=== PATIENT | female | born 1945 | race Caucasian/White ===

== ENCOUNTER → 2017-10-22 09:04 | Outpatient (CLI) | payer OTHER, SELFPAY ==
--- NOTE | 2017-10-22 | DI.ECHO.S_ITS ---
[facility] +[facility]+ : : [address] : : : : [id number] : : : : Phone: [phone] Echocardiogram Report + + :Name: KIMBERLY LAKHANI Study Date: 10/22/2017 Height: 67 in : :[facility] Weight: 179 lb : : Gender: Female BSA: 1.9 m2 : :: 1945 Age: 71 yrs BP: 188/92 mmHg: :Reason For Study: Atrial fibrillation : :Ordering Physician: Benton : :Aneesh Cardoza Performed By: Britney Fletcher : :Referring: Dr. Regan Brasher : + + Interpretation Summary 1) Normal left ventricular thickness, size, wall motion, and systolic function (EF 60-65%). 2) Mildly enlarged right ventricle with borderline reduced function. 3) There is severe biatrial enlargement. 4) There is mild to moderate mitral regurgitation. 5) There is mild to moderate tricuspid regurgitation. 6) The right ventricular systolic pressure is estimated at 61 mmHg assuming a right atrial pressure of 15 mm Hg. 7) A patent foramen ovale is present. 8) Severe hypertension present during the study (BP 188/92). 9) Compared to the Echo done 06/26/2011, pulmonary hypertension is present on this study. Procedure: A two-dimensional transthoracic echocardiogram with color flow and Doppler was performed. The study quality was technically adequate. Comparison is made with the echocardiogram of 06-26-11. The patient was in atrial fibrillation with heart rates between 81-98 bpm during the exam. Left Ventricle: The left ventricle is normal in size, wall thickness, and systolic function without any focal wall motion abnormalities. The ejection fraction is estimated to be 60-65%. Diastolic function could not be accurately assessed due to atrial fibrillation. Right Ventricle: The right ventricle is mildly dilated. Right ventricular systolic function is borderline reduced. Atria: There is severe biatrial enlargement. A patent foramen ovale is present. Mitral Valve: The mitral valve leaflets appear mildly thickened, but open well. There is mild to moderate mitral regurgitation. Aortic Valve: The aortic valve opens well. There is no aortic valve stenosis. No aortic regurgitation is present. Tricuspid Valve: The tricuspid valve leaflets are thin and pliable. There is mild to moderate tricuspid regurgitation. The right ventricular systolic pressure is estimated at 61 mmHg assuming a right atrial pressure of 15 mm Hg. Pulmonic Valve: The pulmonic valve is not well seen, but is grossly normal. There is trace pulmonic regurgitation. Great Vessels: The aortic root is normal size. The ascending aorta is mildly enlarged. The IVC is dilated (diameter is greater than 2.1 cm) and it collapses less than 50% with a sniff. This suggests a high right atrial pressure of 15 mm Hg. Pericardium/ Pleura There is no pericardial effusion. There is no pleural effusion. MMode/2D Measurements & Calculations LVIDd: 5.2 cm Ao root diam: 3.6 cm LVIDs: 3.6 cm Aortic Jxn: 2.8 cm FS: 30.9 % asc Aorta Diam: 3.9 cm EPSS: 0.59 cm Ao Arch Diam (Prox Trans): 2.2 cm IVSd: 1.1 cm LVPWd: 1.1 cm LV stoner. diameter/BSA (cm/m^2): 2.7 LV sys. diameter/BSA (cm/m^2): 1.9 LA dimension: 5.5 cm RA long axis: 8.2 cm LA A2 area: 37.5 cm2 RA area: 38.4 cm2 LA A4 area: 42.8 cm2 RA vol: 152.6 ml LA length (vol): 8.3 cm RA : 79.1 ml/m2 LA vol: 164.1 ml IVC diam: 2.2 cm LA vol index: 85.1 ml/m2 RVDd major: 5.9 cm RVD1 (basal): 3.6 cm RVD2 (mid): 3.0 cm Doppler Measurements & Calculations Ao V2 max: 159.5 cm/sec MV E max jarrett: 137.5 cm/sec Ao V2 mean: 104.8 cm/sec MV A max jarrett: 39.8 cm/sec Ao max P.2 mmHg MV E/A: 3.5 Ao mean P.3 mmHg MV dec time: 0.14 sec Ao V2 VTI: 34.9 cm MV P1/2t: 42.1 msec MR ERO: 0.14 cm2 TR max jarrett: 338.4 cm/sec MV P1/2t max jarrett: 137.7 cm/sec TR max P.8 mmHg MVA(P1/2t): 5.2 cm2 PA V2 max: 80.3 cm/sec PA V2 mean: 51.9 cm/sec PA mean P.3 mmHg PA Accel Time: 0.12 sec MR flow rate: 88.5 cm3/sec MR SCHROEDER radius: 0.61 cm Reading Physician:01:01 PM
== END ==
PROVIDERS: Family Provider Family Medicine; PCP Family Medicine; Visit Provider Internal Medicine Cardiovascular Disease
DX: I48.2 Chronic atrial fibrillation (principal)
CPT/HCPCS: 93306

== ENCOUNTER → 2017-11-18 12:49 | Outpatient (CLI) | payer OTHER, SELFPAY ==
[2017-11-18 13:18] LABS: Add Manual Diff / Slide Review NO; Basophils Percent Auto 0.4 % (0-2); Eosinophils Percent Auto 2.6 % (2-4); Hematocrit 38.3 % (36-46); Mean Corpuscular HGB Conc 33.9 % (30-36); Mean Corpuscular Hemoglobin 31.6 PG (26-34); Monocytes Percent Auto 10.3 % (3-14); Neutrophils Absolute Auto 3200 /uL (3000-5900); Neutrophils Percent Auto 56.7 % (50-75); Platelet Count 236 X10^3/uL (150-400); Red Blood Cell Count 4.12 X10^6/uL (4.0-5.2); Red Cell Distribution Width 13.7 % (11.6-14.8); White Blood Cell Count 5.7 X10^3/uL (4.5-11.0)
[2017-11-18 13:37] LABS: Alanine Aminotransferase 31 IU/L (9-52); Albumin 4.5 g/dL (3.5-5.0); Albumin Globulin Ratio 1.2 (1.0-2.8); Alkaline Phosphatase 75 U/L (38-126); Aspartate Aminotransferase 29 IU/L (14-36); Bilirubin Total 0.7 mg/dL (0.2-1.3); Blood Urea Nitrogen 30 mg/dL (7-17); Calcium 9.6 mg/dL (8.4-10.2); Carbon Dioxide 28 mmol/L (22-32); Chloride 101 mmol/L (98-107); Cholesterol 266 mg/dL (140-199); Estimated Glomerular Filt Rate 54.3 mL/min (>60); Globulin 3.8 g/dL (1.7-4.1); Glucose 91 mg/dL (80-110); HDL Cholesterol 61 mg/dL (40-60); HEMOLYSIS < 15 (0-50); LDL Cholesterol Calculated 166 mg/dL (<100); Potassium 3.7 mmol/L (3.4-5.1); Sodium 141 mmol/L (137-145); Total Protein 8.3 g/dL (6.3-8.2); Triglycerides 195 mg/dL (35-150)
[2017-11-18 19:07] LABS: Thyroid Stimulating Hormone 0.27 uIU/mL (0.47-4.68)
== END ==
PROVIDERS: PCP Family Medicine; Visit Provider Family Medicine
DX: I10 Essential (primary) hypertension (principal)
CPT/HCPCS: 36415; 80053; 80061; 84443; 85025

== ENCOUNTER → 2018-01-07 10:14 | Outpatient (CLI) | payer OTHER, SELFPAY ==
[2018-01-07 11:20] LABS: Blood Urea Nitrogen 32 mg/dL (7-17); Calcium 9.8 mg/dL (8.4-10.2); Carbon Dioxide 30 mmol/L (22-32); Chloride 102 mmol/L (98-107); Cholesterol 249 mg/dL (140-199); Estimated Glomerular Filt Rate 54.3 mL/min (>60); Glucose 90 mg/dL (80-110); HDL Cholesterol 56 mg/dL (40-60); HEMOLYSIS < 15 (0-50); LDL Cholesterol Calculated 174 mg/dL (<100); Potassium 3.8 mmol/L (3.4-5.1); Sodium 142 mmol/L (137-145); Triglycerides 96 mg/dL (35-150)
[2018-01-07 12:15] LABS: Free T3, Triiodothyronine Free 2.84 pg/mL (2.77-5.27); Free T4, Direct Thyroxine 1.09 ng/dL (0.78-2.19)
[2018-01-07 12:29] LABS: Thyroid Stimulating Hormone 1.08 uIU/mL (0.47-4.68)
== END ==
PROVIDERS: Family Provider Family Medicine; PCP Family Medicine; Visit Provider Internal Medicine Cardiovascular Disease
DX: I10 Essential (primary) hypertension (principal); I50.30 Unspecified diastolic (congestive) heart failure; E78.5 Hyperlipidemia, unspecified; R79.89 Other specified abnormal findings of blood chemistry
CPT/HCPCS: 36415; 80048; 80061; 84439; 84443; 84481

== ENCOUNTER → 2018-03-16 09:11 | Outpatient (CLI) | payer OTHER, SELFPAY ==
[2018-03-16 10:10] LABS: Cholesterol 262 mg/dL (140-199); HDL Cholesterol 67 mg/dL (40-60); LDL Cholesterol Calculated 175 mg/dL (<100); Triglycerides 100 mg/dL (35-150); Uric Acid 7.7 mg/dL (2.5-6.2)
== END ==
PROVIDERS: PCP Family Medicine; Visit Provider Family Medicine
DX: M10.9 Gout, unspecified (principal); E78.2 Mixed hyperlipidemia
CPT/HCPCS: 36415; 80061; 84550

== ENCOUNTER → 2018-06-08 15:34 | Outpatient (CLI) | payer OTHER, SELFPAY ==
--- NOTE | 2018-06-08 15:39 | DI.RAD.S_ITS ---
PROCEDURE: XR CHEST 2V INDICATIONS: cough TECHNIQUE: 2 views of the chest were acquired. COMPARISON: [facility], , CHEST 1 VIEW, 10/06/2006, 14:11. FINDINGS: Surgical changes and devices: None. Lungs and pleura: No pleural effusions or pneumothorax. Lungs are mildly edematous. Mediastinum: Mediastinal contours are normal. Heart size is globally enlarged, prominently, chronically. Bones and chest wall: No suspicious bony abnormalities. Soft tissues appear unremarkable. IMPRESSION: Chronic cardiomegaly, chronic CHF pattern. Dictated by: Cole Rodrigues M.D. on 06/08/2018 at 15:56 Approved by: Cole Rodrigues M.D. on 06/08/2018 at 15:56
== END ==
PROVIDERS: PCP Family Medicine; Visit Provider Family Medicine
DX: R05 Cough (principal); I51.7 Cardiomegaly; I50.9 Heart failure, unspecified
CPT/HCPCS: 71046

== ENCOUNTER → 2019-01-31 16:04 | Outpatient (CLI) | payer OTHER, SELFPAY ==
[2019-01-31 16:52] LABS: Add Manual Diff / Slide Review NO; Basophils Absolute Auto 0 /uL (0-100); Basophils Percent Auto 0.4 % (0-2); Eosinophils Absolute Auto 200 /uL (0-450); Eosinophils Percent Auto 3.9 % (2-4); Hematocrit 38.5 % (36-46); Hemoglobin 13.1 g/dL (12.0-16.0); Lymphocytes Absolute Auto 1900 /uL (1100-4500); Lymphocytes Percent Auto 30.6 % (25-40); Mean Corpuscular HGB Conc 33.9 % (30-36); Mean Corpuscular Hemoglobin 30.7 PG (26-34); Mean Corpuscular Volume 90.6 fL (80-100); Monocytes Absolute Auto 600 /uL (0-900); Monocytes Percent Auto 10.5 % (3-14); Neutrophils Absolute Auto 3400 /uL (1500-7000); Neutrophils Percent Auto 54.6 % (50-75); Platelet Count 186 X10^3/uL (150-400); Red Blood Cell Count 4.25 X10^6/uL (4.0-5.2); Red Cell Distribution Width 13.4 % (11.6-14.8); White Blood Cell Count 6.2 X10^3/uL (4.5-11.0)
[2019-01-31 18:24] LABS: Alanine Aminotransferase 36 IU/L (9-52); Albumin 4.2 g/dL (3.5-5.0); Albumin Globulin Ratio 1.2 (1.0-2.8); Alkaline Phosphatase 109 U/L (38-126); Amylase 71 U/L (30-110); Aspartate Aminotransferase 35 IU/L (14-36); BUN Creatinine Ratio 32.5 (6-22); Bilirubin Total 0.6 mg/dL (0.2-1.3); Blood Urea Nitrogen 39 mg/dL (7-17); Calcium 9.6 mg/dL (8.4-10.2); Carbon Dioxide 25 mmol/L (22-32); Chloride 104 mmol/L (98-107); Estimated Glomerular Filt Rate 43.9 mL/min (>60); Globulin 3.4 g/dL (1.7-4.1); Glucose 91 mg/dL (80-110); HEMOLYSIS < 15 (0-50); Magnesium 1.8 mg/dL (1.6-2.3); Potassium 3.3 mmol/L (3.4-5.1); Sodium 139 mmol/L (137-145); Total Protein 7.6 g/dL (6.3-8.2)
[2019-01-31 18:29] LABS: Lipase 268 U/L (23-300)
[2019-02-02 14:16] LABS: Urea Breath Test >18YRS DETECTED
== END ==
PROVIDERS: Family Provider Family Medicine; PCP Family Medicine; Visit Provider Family Medicine
DX: R10.9 Unspecified abdominal pain (principal)
CPT/HCPCS: 36415; 80053; 82150; 83013; 83690; 83735; 85025

== ENCOUNTER → 2019-02-04 11:30 | Outpatient (CLI) | payer OTHER, SELFPAY ==
--- NOTE | 2019-02-04 11:32 | DI.US.S_ITS ---
PROCEDURE: US ABDOMEN COMPLETE INDICATIONS: PAIN, DISTENTION TECHNIQUE: Real-time scanning was performed of the abdominal and retroperitoneal organs, with image documentation. COMPARISON: None. FINDINGS: Liver: Liver is normal in size and homogeneous in echotexture. Gallbladder: No gallstones identified. Normal gallbladder wall. No pericholecystic fluid. Negative sonographic Montoya sign. Biliary ducts: Intrahepatic bile ducts are non-dilated. Extrahepatic bile duct caliber measures 4.2 mm. Normal is 6-7 mm or less in diameter, or 10 mm or less post-cholecystectomy. Pancreas: Visualized portions of the pancreas are sonographically normal. Spleen: Spleen is normal in size and homogeneous in echotexture. Kidneys: Kidneys are normal in size and echotexture. Right kidney measures 10.7 cm long; left kidney measures 10.1 cm long. No hydronephrosis or nephrolithiasis. No solid masses. 26 mm simple right renal cyst. Aorta: Visualized aorta is normal in caliber at less than 3 cm. Iliacs: Proximal common iliac arteries are normal in caliber at less than 2.5 cm. IVC: Intrahepatic inferior vena cava is patent. Miscellaneous: No free abdominal fluid. IMPRESSION: No source for abdominal pain and distention identified. Dictated by: Sandro HORNE Interpreted: Saundra Figueroa MD on 02/04/2019 at 13:05 Approved by: Saundra Figueroa M.D. on 02/04/2019 at 16:07
== END ==
PROVIDERS: Family Provider Family Medicine; PCP Family Medicine; Visit Provider Family Medicine
DX: R10.9 Unspecified abdominal pain (principal); R14.0 Abdominal distension (gaseous)
CPT/HCPCS: 76700

== ENCOUNTER → 2019-04-29 12:35 | Outpatient (CLI) | payer OTHER, SELFPAY ==
--- NOTE | 2019-04-29 12:36 | DI.MRI.S_ITS ---
PROCEDURE: MR BRAIN (IAC) WWO CON INDICATIONS: Vertigo, right-sided tinnitus. TECHNIQUE: Noncontrast sagittal T1 spin echo, axial FLAIR, axial gradient echo, axial diffusion and ADC through the brain. Axial thin-slice 3D CISS, coronal TruFISP, axial T1 spin echo with fat saturation through the internal auditory canals. After the administration of contrast, thin slice axial and coronal T1 spin echo with fat saturation through the internal auditory canals, and axial T1 spin echo with fat saturation through the brain. COMPARISON: None. FINDINGS: Image quality: Excellent. Cerebellopontine angles: No cerebellopontine angle masses. Inner ear structures appear normally formed. No suspicious enhancement in the internal auditory canal or along the course of the 7th cranial nerve. CSF spaces: Ventricles are normal in size and shape. No extra-axial fluid collections. Basal cisterns are patent. Brain: No intracranial bleeds or mass effects. Barrios-white matter interface is intact. No abnormal intracranial enhancement. Diffusion weighted images demonstrate no acute ischemic insults. Brainstem appears normal. Normal intravascular flow voids are present. Skull and face: Calvarial marrow signal is normal. Orbits appear normal. Sinuses: Sinuses and mastoids are clear. IMPRESSION: Source of vertigo and tinnitus is not found. The brain parenchyma appears normal for age. No inflammatory changes seen at the mastoid air cells bilaterally. No underlying infection or neoplasm is suspected. Dictated by: Cole Rodrigues M.D. on 04/29/2019 at 14:49 Approved by: Cole Rodrigues M.D. on 04/29/2019 at 14:52
== END ==
PROVIDERS: Family Provider Family Medicine; PCP Family Medicine; Visit Provider Family Medicine
DX: R42 Dizziness and giddiness (principal)
CPT/HCPCS: 70553

== ENCOUNTER → 2020-01-11 11:02 | Outpatient (CLI) | payer OTHER, SELFPAY ==
[2020-01-11 12:17] LABS: Add Manual Diff / Slide Review NO; Basophils Absolute Auto 100 /uL (0-100); Basophils Percent Auto 0.9 % (0-2); Eosinophils Absolute Auto 900 /uL (0-450); Hematocrit 38.2 % (36-46); Lymphocytes Absolute Auto 1500 /uL (1100-4500); Lymphocytes Percent Auto 23.6 % (25-40); Mean Corpuscular HGB Conc 34.1 % (30-36); Mean Corpuscular Hemoglobin 31.4 PG (26-34); Mean Corpuscular Volume 92.2 fL (80-100); Monocytes Absolute Auto 700 /uL (0-900); Monocytes Percent Auto 10.9 % (3-14); Neutrophils Absolute Auto 3100 /uL (1500-7000); Neutrophils Percent Auto 50.6 % (50-75); Platelet Count 179 X10^3/uL (150-400); Red Blood Cell Count 4.15 X10^6/uL (4.0-5.2); White Blood Cell Count 6.2 X10^3/uL (4.5-11.0)
[2020-01-11 12:34] LABS: Erythrocyte Sedimentation Rate 31 MM/HR (0-20)
[2020-01-11 12:35] LABS: Alanine Aminotransferase 45 IU/L (<35); Albumin 4.4 g/dL (3.5-5.0); Albumin Globulin Ratio 1.3 (1.0-2.8); Alkaline Phosphatase 113 U/L (38-126); Aspartate Aminotransferase 39 IU/L (14-36); BUN Creatinine Ratio 31.8 (6-22); Bilirubin Total 0.7 mg/dL (0.2-1.3); Blood Urea Nitrogen 41 mg/dL (7-17); Calcium 9.7 mg/dL (8.4-10.2); Carbon Dioxide 27 mmol/L (22-32); Chloride 103 mmol/L (98-107); Cholesterol 267 mg/dL (140-199); Estimated Glomerular Filt Rate 40.3 mL/min (>60); Globulin 3.4 g/dL (1.7-4.1); Glucose 93 mg/dL (80-110); HDL Cholesterol 49 mg/dL (40-60); HEMOLYSIS < 15 (0-50); LDL Cholesterol Calculated 194 mg/dL (<100); Sodium 139 mmol/L (137-145); Total Protein 7.8 g/dL (6.3-8.2); Triglycerides 120 mg/dL (35-150); Uric Acid 10.3 mg/dL (2.5-6.2)
[2020-01-11 12:55] LABS: C-Reactive Protein Quant < 0.5 mg/dL (<1.0)
[2020-01-11 13:41] LABS: Thyroid Stimulating Hormone 1.47 uIU/mL (0.47-4.68)
== END ==
PROVIDERS: Family Provider Family Medicine; PCP Family Medicine; Referring Provider Family Medicine; Visit Provider Family Medicine
DX: E78.2 Mixed hyperlipidemia (principal); I10 Essential (primary) hypertension; M15.8 Other polyosteoarthritis
CPT/HCPCS: 36415; 80053; 80061; 84443; 84550; 85025; 85651; 86140

== ENCOUNTER → 2020-03-05 11:31 | Outpatient (CLI) | payer OTHER, SELFPAY ==
[2020-03-05 12:17] LABS: Alanine Aminotransferase 30 IU/L (<35); Albumin 4.2 g/dL (3.5-5.0); Albumin Globulin Ratio 1.2 (1.0-2.8); Alkaline Phosphatase 102 U/L (38-126); Aspartate Aminotransferase 29 IU/L (14-36); BUN Creatinine Ratio 20.4 (6-22); Bilirubin Total 0.8 mg/dL (0.2-1.3); Bilirubin Unconjugated 0.6 mg/dL (0.0-1.1); Blood Urea Nitrogen 28 mg/dL (7-17); Calcium 9.5 mg/dL (8.4-10.2); Carbon Dioxide 35 mmol/L (22-32); Chloride 99 mmol/L (98-107); Estimated Glomerular Filt Rate 37.6 mL/min (>60); Globulin 3.6 g/dL (1.7-4.1); Glucose 105 mg/dL (80-110); HEMOLYSIS < 15 (0-50); Potassium 3.3 mmol/L (3.4-5.1); Sodium 140 mmol/L (137-145); Total Protein 7.8 g/dL (6.3-8.2)
[2020-03-06 05:10] LABS: HBsAg Screen Negative (Negative); Hepatitis A Antibody IgM Negative (Negative); Hepatitis B Core Antibody IgM Negative (Negative); Hepatitis C Antibody 0.1 s/co ratio (0.0-0.9)
== END ==
PROVIDERS: Family Provider Family Medicine; PCP Family Medicine; Referring Provider Family Medicine; Visit Provider Family Medicine
DX: R94.5 Abnormal results of liver function studies (principal); N17.9 Acute kidney failure, unspecified
CPT/HCPCS: 36415; 80048; 80074; 80076

== ENCOUNTER → 2020-05-31 15:49 | Outpatient (CLI) | payer OTHER, SELFPAY ==
[2020-05-31 16:43] LABS: Add Manual Diff / Slide Review NO; Basophils Absolute Auto 0 /uL (0-100); Basophils Percent Auto 0.4 % (0-2); Eosinophils Absolute Auto 300 /uL (0-450); Eosinophils Percent Auto 5.8 % (2-4); Hematocrit 35.8 % (36-46); Hemoglobin 11.7 g/dL (12.0-16.0); Lymphocytes Absolute Auto 1400 /uL (1100-4500); Lymphocytes Percent Auto 26.6 % (25-40); Mean Corpuscular HGB Conc 32.6 % (30-36); Mean Corpuscular Hemoglobin 27.8 PG (26-34); Mean Corpuscular Volume 85.3 fL (80-100); Monocytes Absolute Auto 500 /uL (0-900); Monocytes Percent Auto 9.8 % (3-14); Neutrophils Absolute Auto 3000 /uL (1500-7000); Neutrophils Percent Auto 57.4 % (50-75); Platelet Count 216 X10^3/uL (150-400); Red Cell Distribution Width 15.6 % (11.6-14.8); White Blood Cell Count 5.2 X10^3/uL (4.5-11.0)
[2020-05-31 16:50] LABS: Alanine Aminotransferase 18 IU/L (<35); Albumin Globulin Ratio 1.2 (1.0-2.8); Alkaline Phosphatase 127 U/L (38-126); Aspartate Aminotransferase 28 IU/L (14-36); Bilirubin Total 0.4 mg/dL (0.2-1.3); Blood Urea Nitrogen 16 mg/dL (7-17); Calcium 9.4 mg/dL (8.4-10.2); Carbon Dioxide 30 mmol/L (22-32); Chloride 106 mmol/L (98-107); Globulin 3.3 g/dL (1.7-4.1); Glucose 101 mg/dL (80-110); HEMOLYSIS < 15 (0-50); Potassium 3.4 mmol/L (3.4-5.1); Sodium 140 mmol/L (137-145); Total Protein 7.3 g/dL (6.3-8.2); Uric Acid 7.4 mg/dL (2.5-6.2)
[2020-05-31 16:53] LABS: C-Reactive Protein Quant < 0.5 mg/dL (<1.0)
[2020-05-31 17:47] LABS: Erythrocyte Sedimentation Rate 19 MM/HR (0-20)
== END ==
PROVIDERS: Family Provider Family Medicine; PCP Internal Medicine; Referring Provider Internal Medicine; Visit Provider Internal Medicine
DX: E78.2 Mixed hyperlipidemia (principal); I10 Essential (primary) hypertension; I48.91 Unspecified atrial fibrillation; M10.9 Gout, unspecified
CPT/HCPCS: 36415; 80053; 84550; 85025; 85651; 86140

== ENCOUNTER 2022-01-24 14:34 | Emergency (ER) | payer OTHER, SELFPAY ==
[2022-01-24] VITALS (14 sets, daily range): BP systolic 137–230; BP diastolic 63–111; PULSE 62–74; RESP 16–20; TEMP 36.2; O2SAT 93–97; BMI 39.1
--- NOTE | 2022-01-24 15:23 | ED_ITS ---
HPI - Extremity Problem General Chief complaint: Extremity Problem,Nontraumatic Stated complaint: Toney Lower extremity swelling/failure to thrive Time Seen by Provider: 01/24/22 15:14 Source: patient Mode of arrival: EMS Limitations: no limitations History of Present Illness HPI Narrative: Patient is a 76-year-old female. She arrives emergency department by EMS. For evaluation of bilateral lower extremity swelling. She has had swelling for many months if not longer. She has been on Lasix in the past but does not currently have any this medication. It has been several weeks if not longer that she is been on any Lasix. She states that she can not get to her primary doctor's office because she is too weak to stand up. She does live at home with her daughter. States her daughter's been her collector of port but recently her daughter has been unable to take care of her. She did get a cat scratch on her right lower extremity and she states that that area has been leaking some fluid and she is concerned that maybe it is infected. She also generally does not feel very well. Her initial primary doctor that she had for years retired. She states she saw another doctor afterwards but apparently there was some issue with that doctor and she was told that she could no longer see him. She has been seeing a palliative care doctor out of [place]. Patient is unsure as to why she is under the care of palliative care. Related Data Previous Rx's Medication Instructions Recorded warfarin 2.5 mg tablet See Rx Instructions .Route 01/17/20 .COMPLEX #120 tabs furosemide 40 mg tablet 40 mg PO .2 - 3x daily #180 tabs 03/20/20 qjckezen-putxmdjzy-ntkruoxe 3.5 2 drp EYE-BOTH Q8H #5 mL 05/31/20 mg/mL-10,000 unit/mL-0.1% eye drops (Maxitrol) carvedilol 12.5 mg tablet 25 mg PO BID #360 tabs 06/13/20 clonidine HCl 0.1 mg tablet 0.1 mg PO BID #180 tabs 06/29/20 lorazepam 0.5 mg tablet 0.5 mg PO TID PRN anxiety #90 tabs 06/29/20 colchicine 0.6 mg capsule See Rx Instructions .Route 07/05/20 .COMPLEX #90 caps losartan 50 mg tablet See Rx Instructions .Route 09/10/20 .COMPLEX #270 tabs furosemide 40 mg tablet (Lasix) 40 mg PO DAILY #90 tabs 01/24/22 Allergies Allergy/AdvReac Type Severity Reaction Status Date / Time amlodipine AdvReac Severe edema Verified 08/03/20 13:32 codeine [CODEINE] AdvReac Unknown UPSET Verified 08/03/20 13:32 STOMACH morphine [MORPHINE] AdvReac Unknown UPSET Verified 08/03/20 13:32 STOMACH hydralazine AdvReac racing Verified 08/03/20 13:32 heart, trouble breathing Review of Systems Review of Systems ROS Unobtainable: All systems reviewed & are unremarkable except as noted in HPI and below Patient History Medical History Anxiety (~2007) Atrial fibrillation (~2007) Chronic heart failure with preserved ejection fraction Chronic renal failure, stage 3a Depression (~2015) Eczema (~1979) Family history of colon cancer in father Foot pain (~2008) Gout (~2008) Obesity Patent foramen ovale Plantar warts (~1959) Rheumatoid arthritis (~2014) Status post fracture of femur (~02/2020) Vision disorder Surgical History Anesthesia Status post appendectomy (~1980) Status post delivery (~1979) Family History Father Age: 101 Cancer Hypertension Stroke Aneurysm Colon cancer Mother Heart disease High cholesterol Social History household members: family occupational status: employed Smoking Status: Never smoker alcohol intake: current substance use type: does not use Smoking Status: Never smoker Exam Initial Vital Signs Initial Vital Signs: Vital Signs Pulse Rate 74 01/24/22 14:48 Pulse Oximetry 96 01/24/22 14:48 Const General: cooperative and comfortable HENMT Head: normal to inspection and normocephalic Resp Effort & Inspection: normal respiratory effort Auscultation: clear to auscultation bilaterally Cardio Rate: regular rate Rhythm: regular rhythm GI Inspection: normal to inspection Palpation: soft and No tender Skin Other: Patient does have a small superficial ulceration to the distal 1/3 of the lateral aspect of her right leg. There is no surrounding erythema. She also has what appears to be getting of pressure ulcers to her upper buttocks. There is no erythema around the area. There is actually no break in the skin in this area. Neuro General: patient alert, patient awake and moves all extremities Extrem Other: Patient does have bilateral lower extremity swelling Psych Appearance: grossly normal and disheveled Course Orders Ordered: ED Orders 01/24/22 15:10 Consult to TRANSPORTATION MAINTENANCE OPERATOR - Napkin Band Wrapper Stat 01/24/22 15:44 Complete Blood Count AUTO DIFF Stat Comprehensive Metabolic Panel Stat Lipase Stat NT-proBNP (BNP-Adult 18+) Stat Troponin & CK Cardiac Panel Stat 01/24/22 16:45 Consult to Home Health Stat Discontinued Medications Furosemide (Furosemide 40 Mg/4 Ml Vial) 40 mg IV NOW ONE Stop: 01/24/22 15:27 Last Admin: 01/24/22 15:44 Dose: 40 mg Documented By: [facility] Vital Signs Vital signs: Vital Signs - 8 hr 01/24/22 14:54 01/24/22 14:48 01/24/22 14:52 Temperature 97.1 F L Pulse Rate 70 74 67 Respiratory Rate 20 Blood Pressure 205/111 H Pulse Oximetry 97 96 95 Oxygen Delivery Method Room Air 01/24/22 14:52 01/24/22 15:00 01/24/22 15:01 Temperature Pulse Rate 67 Respiratory Rate Blood Pressure 205/111 H 199/90 H Pulse Oximetry 95 Oxygen Delivery Method 01/24/22 15:01 01/24/22 15:30 01/24/22 15:31 Temperature Pulse Rate 63 62 69 Respiratory Rate Blood Pressure Pulse Oximetry 95 95 95 Oxygen Delivery Method 01/24/22 15:31 01/24/22 16:00 01/24/22 16:01 Temperature Pulse Rate 73 Respiratory Rate Blood Pressure 199/81 H 230/92 H Pulse Oximetry 95 Oxygen Delivery Method 01/24/22 16:01 01/24/22 16:30 01/24/22 16:31 Temperature Pulse Rate 73 64 63 Respiratory Rate Blood Pressure Pulse Oximetry 93 96 95 Oxygen Delivery Method 01/24/22 16:31 01/24/22 17:00 01/24/22 17:01 Temperature Pulse Rate 70 Respiratory Rate Blood Pressure 195/79 H 217/86 H Pulse Oximetry 96 Oxygen Delivery Method 01/24/22 17:01 Temperature Pulse Rate 66 Respiratory Rate Blood Pressure Pulse Oximetry 95 Oxygen Delivery Method MDM - Extremity (Nontraumatic) Lab Data Result diagrams: 01/24/22 15:44 01/24/22 15:44 Labs: Lab Results 01/24/22 01/24/22 Range/Units 15:44 15:44 WBC 5.6 (4.5-11.0) X10^3/uL RBC 3.84 L (4.0-5.2) X10^6/uL Hgb 11.8 L (12.0-16.0) g/dL Hct 35.3 L (36-46) % MCV 91.9 (80-100) fL MCH 30.7 (26-34) PG MCHC 33.4 (30-36) % RDW 13.6 (11.6-14.8) % Plt Count 182 (150-400) X10^3/uL Neut % (Auto) 64.0 (50-75) % Lymph % (Auto) 17.4 L (25-40) % Hand % (Auto) 10.2 (3-14) % Eos % (Auto) 7.6 H (2-4) % Baso % (Auto) 0.8 (0-2) % Neut # (Auto) 3600 (7617-3793) /uL Lymph # (Auto) 1000 L (3268-1416) /uL Hand # (Auto) 600 (0-900) /uL Eos # (Auto) 400 (0-450) /uL Baso # (Auto) 0 (0-100) /uL Sodium 139 (137-145) mmol/L Potassium 3.6 (3.4-5.1) mmol/L Chloride 105 (98-107) mmol/L Carbon Dioxide 26 (22-32) mmol/L BUN 13 (7-17) mg/dL Creatinine 0.87 (0.52-1.04) mg/dL Estimated GFR > 60 (>60) mL/min BUN/Creatinine Ratio 14.9 (6-22) Glucose 105 (80-110) mg/dL Calcium 9.2 (8.4-10.2) mg/dL Total Bilirubin 0.9 (0.2-1.3) mg/dL AST 17 (14-36) IU/L ALT 9 (<35) IU/L Alkaline Phosphatase 66 (38-126) U/L Total Creatine Kinase 38 (30-135) U/L CK-MB (CK-2) TNP CK-MB (CK-2) Rel Index TNP Troponin I < 0.012 (0.01-0.034) ng/mL NT-Pro-B Natriuret Pep 1450 H (<450) pg/mL Total Protein 7.3 (6.3-8.2) g/dL Albumin 3.8 (3.5-5.0) g/dL Globulin 3.5 (1.7-4.1) g/dL Albumin/Globulin Ratio 1.1 (1.0-2.8) Lipase 68 (23-300) U/L MDM Narrative Medical decision making narrative: No chest pain. She does have obvious bilateral lower extremity swelling. She is also hypertensive. She is obviously fluid overloaded. Not in acute heart f ailure. Was given Lasix and did diurese greater than 1 L of urine. Patient was also seen by social work. Social work contacted the last primary doctor the patient saw had it does appear that she is still under their care. Patient was informed of this. She was given their new phone number for follow-up. We were also able to get her scheduled for home health because she does have a primary doctor. No indication for admission to the hospital today. Will discharge home and have patient follow-up. She was also given a prescription for her Lasix. Discharge Plan Departure Patient Disposition: Home Clinical Impression: Peripheral edema Instructions: Edema Activity Restrictions/Additional Instructions: I do recommend that you take all of your medications as directed. Our social welfare clerk here in the emergency department did contact the [address] and it does appear you are still under their care. You can contact their office at [phone] for a follow-up. Return to the emergency department for any new or worsening symptoms Prescriptions: New furosemide [Lasix] 40 mg tablet 40 mg PO DAILY Qty: 90 0RF No Action warfarin 2.5 mg tablet See Rx Instructions .ROUTE .COMPLEX Qty: 120 2RF Dose Instruction: TAKE 2 TABLETS BY MOUTH ON THURSDAY, THURSDAY AND THURSDAY. TAKE 1 TABLET THE OTHER 4 DAYS OR DIRECTED Rx Instructions: TAKE 2 TABLETS BY MOUTH ON THURSDAY, THURSDAY AND THURSDAY. TAKE 1 TABLET THE OTHER 4 DAYS OR DIRECTED furosemide 40 mg tablet 40 mg PO .2 - 3x daily Qty: 180 1RF carvedilol 12.5 mg tablet 25 mg PO BID Qty: 360 3RF colchicine 0.6 mg capsule See Rx Instructions .ROUTE .COMPLEX Qty: 90 3RF Dose Instruction: TAKE 1 CAPSULE BY MOUTH DAILY Rx Instructions: TAKE 1 CAPSULE BY MOUTH DAILY losartan 50 mg tablet See Rx Instructions .ROUTE .COMPLEX Qty: 270 3RF Dose Instruction: TAKE 2 TABLETS BY MOUTH EVERY MORNING AND 1 TABLET EVERY EVENING Rx Instructions: TAKE 2 TABLETS BY MOUTH EVERY MORNING AND 1 TABLET EVERY EVENING neomycin-polymyxin B-dexameth [Maxitrol] 3.5mg/mL-10,000 unit/mL-0.1 % drops,suspension 2 drp EYE-BOTH Q8H Qty: 5 0RF clonidine HCl 0.1 mg tablet 0.1 mg PO BID Qty: 180 3RF lorazepam 0.5 mg tablet 0.5 mg PO TID PRN (Reason: anxiety) Qty: 90 3RF Referrals: Sammy Mccoy MD [Primary Care Provider] -
[2022-01-24] MEDS: FUROSEMIDE 40 MG/4 ML VIAL IV (15:44)
[2022-01-24 16:00] LABS: Add Manual Diff / Slide Review NO; Basophils Absolute Auto 0 /uL (0-100); Basophils Percent Auto 0.8 % (0-2); Eosinophils Absolute Auto 400 /uL (0-450); Eosinophils Percent Auto 7.6 % (2-4); Hematocrit 35.3 % (36-46); Hemoglobin 11.8 g/dL (12.0-16.0); Lymphocytes Absolute Auto 1000 /uL (1100-4500); Lymphocytes Percent Auto 17.4 % (25-40); Mean Corpuscular HGB Conc 33.4 % (30-36); Mean Corpuscular Hemoglobin 30.7 PG (26-34); Mean Corpuscular Volume 91.9 fL (80-100); Monocytes Absolute Auto 600 /uL (0-900); Monocytes Percent Auto 10.2 % (3-14); Neutrophils Absolute Auto 3600 /uL (1500-7000); Platelet Count 182 X10^3/uL (150-400); Red Blood Cell Count 3.84 X10^6/uL (4.0-5.2); Red Cell Distribution Width 13.6 % (11.6-14.8); White Blood Cell Count 5.6 X10^3/uL (4.5-11.0)
--- NOTE | 2022-01-24 16:04 | PC.NURSE ---
cat scratch to right lower leg. Reports increase drainage from right leg. Patient has bilateral lower extremity edema. Worse on right than left. Has been bed bound for two years. Patient has redness noted to backside, no break in skin just redness from pressure.
--- NOTE | 2022-01-24 16:07 | PC.NURSE ---
Buttocks cleaned, dressing applied to buttocks. Absorbant pad placed under patient, periwick in place for incontinence. Absorbant chucks placed under right leg in place of patients dressing she presented with. Do not appreciate redness, swelling or warmth. No signs of infection noted
[2022-01-24 16:13] LABS: Alanine Aminotransferase 9 IU/L (<35); Albumin 3.8 g/dL (3.5-5.0); Albumin Globulin Ratio 1.1 (1.0-2.8); Alkaline Phosphatase 66 U/L (38-126); Aspartate Aminotransferase 17 IU/L (14-36); BUN Creatinine Ratio 14.9 (6-22); Bilirubin Total 0.9 mg/dL (0.2-1.3); Blood Urea Nitrogen 13 mg/dL (7-17); Calcium 9.2 mg/dL (8.4-10.2); Carbon Dioxide 26 mmol/L (22-32); Chloride 105 mmol/L (98-107); Creatine Kinase 38 U/L (30-135); Estimated Glomerular Filt Rate > 60 mL/min (>60); Globulin 3.5 g/dL (1.7-4.1); Glucose 105 mg/dL (80-110); HEMOLYSIS < 15 (0-50); Lipase 68 U/L (23-300); Potassium 3.6 mmol/L (3.4-5.1); Sodium 139 mmol/L (137-145); Total Protein 7.3 g/dL (6.3-8.2)
[2022-01-24 16:26] LABS: NT-proBNP (BNP-Adult 18+) 1450 pg/mL (<450); Troponin I < 0.012 ng/mL (0.01-0.034)
--- NOTE | 2022-01-24 17:15 | CM.SWNOTE ---
STAPLE LASTER/DCP Note Patient is 76 y/o female who presents to ED via EMS from [facility] due to concern for bilateral lower extremity swelling and failure to thrive. Patient has hx of femur fracture in 2019, hx of AFib, CHF, and Hypertension. Patient has new dx at today's ED visit or peripheral edema. Patient's PCP is Dr. Mccoy, STAPLE LASTER calls Dr. Mccoy's office to confirm patient is still current with provider. Patient's last appt was July 2020. Patient also endorses she has been seeing CAMPOS Canales through [facility] who is a physical security specialist at [facility]. Patient has AARP medicare, [facility] Medicare and [facility] and the [facility] Advantage. Patient presents as A/Ox3 and states that she presents to ED due to concern for edema on her legs, that she is full of fluid and presents with high blood pressure. Patient endorses that she resides with her daughter Jennifer in [place] and daughter has not been able to transfer patient to wheelchair and patient has not been able to leave home. Patient endorses hx of SNF rehab stay in March 2020 after femur fracture and hx of [facility]. Patient endorses she has been bedridden for the last several months. Patient endorses that she has not been able to manage ADLs and relies on her daughter for ADL needs. Patient's daughter enters room. STAPLE LASTER discusses HH services and provides senior resource guide with options of in home caregivers and filler leaf cutter long care facilities via private pay. Patient endorses that she is not interested in SNF. STAPLE LASTER discusses HH agency options and patient denies preference. STAPLE LASTER calls [facility] and leaves regarding HH referral. ED provider Dr. Hernandez signs F2F. STAPLE LASTER to fax F2F, orders and clinicals to [facility]. STAPLE LASTER to submit HH referral for OT, PT, RN, HH aide and STAPLE LASTER. STAPLE LASTER provides [facility] brochure to patient. Patient indicates agreement and understanding. Plan: Patient to transfer home via BLS with [facility] referral in place. Family to look into filler leaf cutter long care options. SRINIVAS Roman
== END 2022-01-24 20:19 | disposition home or self-care (01) ==
PROVIDERS: Emergency Provider Emergency Medicine; Family Provider Family Medicine; PCP Internal Medicine
DX: R60.0 Localized edema (principal); I10 Essential (primary) hypertension
CPT/HCPCS: 36415; 80053; 82550; 83690; 83880; 84484; 85025; 96374; 99284; J1940

== ENCOUNTER 2023-02-26 08:08 | Emergency (ER) | payer OTHER, SELFPAY ==
[2023-02-26] VITALS (31 sets, daily range): BP systolic 181–238; BP diastolic 95–172; PULSE 64–93; RESP 16–22; TEMP 36.6; O2SAT 91–97; BMI 44.3
--- NOTE | 2023-02-26 08:19 | ED.GENADULT ---
HPI - General Adult General Chief complaint: Wound/Laceration Stated complaint: R leg wound Time Seen by Provider: 02/26/23 08:09 Source: patient and EMS Mode of arrival: EMS Limitations: no limitations History of Present Illness HPI narrative: Patient is a 69-year-old female. I evaluated her here in the emergency department approximately 1 year ago. She states that she is here because she just does not feel very well. She has a wound on her right leg that is weeping. She states that she has ?keloids? on the wound on her right leg that are draining. It is somewhat tender. She also states that she needs a COVID test because she is never had COVID nor has had any vaccinations for COVID. She states that her legs hurt. They are swollen. She does not have a primary care doctor. Related Data Home Medications Medication Instructions Recorded Confirmed dabigatran etexilate 150 mg 150 mg PO DAILY 02/26/23 02/26/23 capsule (Pradaxa) furosemide 40 mg tablet 40 mg PO DAILY 02/26/23 02/26/23 losartan 50 mg tablet 100 mg PO DAILY 02/26/23 02/26/23 Previous Rx's Medication Instructions Recorded carvedilol 12.5 mg tablet 25 mg (2 x 12.5 mg) PO BID #360 06/13/20 tabs clonidine HCl 0.1 mg tablet 0.1 mg PO BID #180 tabs 06/29/20 lorazepam 0.5 mg tablet 0.5 mg PO TID PRN anxiety #90 tabs 06/29/20 carvedilol 12.5 mg tablet 25 mg (2 x 12.5 mg) PO BID #120 02/26/23 tabs clonidine HCl 0.1 mg tablet 0.1 mg PO BID #60 tabs 02/26/23 dabigatran etexilate 150 mg 150 mg PO DAILY #30 caps 02/26/23 capsule (Pradaxa) furosemide 40 mg tablet (Lasix) 40 mg PO DAILY #30 tabs 02/26/23 lorazepam 0.5 mg tablet (Ativan) 0.5 mg PO TID PRN anxiety #30 tabs 02/26/23 losartan 50 mg tablet 100 mg (2 x 50 mg) PO DAILY #60 02/26/23 tabs Allergies Allergy/AdvReac Type Severity Reaction Status Date / Time amlodipine AdvReac Severe edema Verified 08/03/20 13:32 codeine [CODEINE] AdvReac Unknown UPSET Verified 08/03/20 13:32 STOMACH morphine [MORPHINE] AdvReac Unknown UPSET Verified 08/03/20 13:32 STOMACH hydralazine AdvReac racing Verified 08/03/20 13:32 heart, trouble breathing Review of Systems Constitutional Constitutional: Reports system reviewed and no additional complaints, except as documented Cardiovascular Cardiovascular: Reports system reviewed and no additional complaints, except as documented Respiratory Respiratory: Reports system reviewed and no additional complaints, except as documented Musculoskeletal Musculoskeletal: Reports system reviewed and no additional complaints, except as documented Integumentary/Breasts Skin/Breast: Reports system reviewed and no additional complaints, except as documented Neurologic Neurologic: Reports system reviewed and no additional complaints, except as documented Patient History Medical History Patent foramen ovale Chronic heart failure with preserved ejection fraction Chronic renal failure, stage 3a Status post fracture of femur (~02/2020) Obesity Family history of colon cancer in father Vision disorder Rheumatoid arthritis (~2014) Depression (~2015) Anxiety (~2007) Gout (~2008) Foot pain (~2008) Plantar warts (~1959) Eczema (~1979) Atrial fibrillation (~2007) Surgical History Anesthesia Status post appendectomy (~1980) Status post delivery (~1979) Family History Father Age: 102 Cancer Hypertension Stroke Aneurysm Colon cancer Mother Heart disease High cholesterol Social History household members: family occupational status: employed Smoking Status: Never smoker alcohol intake: current substance use type: does not use Smoking Status: Never smoker Exam Initial Vital Signs Initial Vital Signs: Vital Signs Pulse Rate 92 H 02/26/23 08:18 Pulse Oximetry 96 02/26/23 08:18 Const General: cooperative HENMT Head: normal to inspection and normocephalic Resp Effort & Inspection: normal respiratory effort Cardio Rate: regular rate Skin Other: Patient does have what appears to be a chronic wound with thickening of the skin to her right leg just proximal to the knee. There is no surrounding erythema. No ulcerations noted. Neuro General: patient alert, patient awake and patient oriented x3 Speech: speech normal Extrem General: edema Course Orders Ordered: ED Orders 02/26/23 08:20 Basic Metabolic Panel Stat Complete Blood Count AUTO DIFF Stat 02/26/23 08:30 Covid-19 + FLU A/B + RSV - PCR Stat 02/26/23 08:[address] [facility] - Early [employer] Teacher Stat 02/26/23 13:20 Consult to Home Health Stat Discontinued Medications Acetaminophen (Acetaminophen 325 Mg Tablet) 650 mg PO NOW ONE Stop: 02/26/23 13:40 Last Admin: 02/26/23 13:49 Dose: 650 mg Documented By: KATELIN Carvedilol (Carvedilol 12.5 Mg Tablet) 25 mg PO NOW ONE Stop: 02/26/23 11:00 Last Admin: 02/26/23 11:19 Dose: 25 mg Documented By: KATELIN Clonidine HCl (Clonidine 0.1 Mg Tablet) 0.1 mg PO NOW ONE Stop: 02/26/23 10:11 Last Admin: 02/26/23 10:22 Dose: 0.1 mg Documented By: KATELIN Furosemide 60 mg/ Sodium (Chloride) 56 mls @ 112 mls/hr IV NOW ONE Stop: 02/26/23 08:25 Last Infusion: 02/26/23 09:48 Dose: Infused Documented By: Admin: 02/26/23 09:09 Dose: 112 mls/hr Documented By: KATELIN Losartan Potassium (Losartan 50 Mg Tablet) 100 mg PO NOW ONE Stop: 02/26/23 11:00 Last Admin: 02/26/23 11:18 Dose: 100 mg Documented By: KATELIN Ondansetron HCl (Ondansetron 4 Mg/2 Ml Inj) 4 mg IV NOW ONE Stop: 02/26/23 10:12 Last Admin: 02/26/23 10:15 Dose: 4 mg Documented By: KATELIN Vital Signs Vital signs: Vital Signs - 8 hr 02/26/23 08:30 02/26/23 08:31 02/26/23 08:31 Pulse Rate 71 77 Respiratory Rate Blood Pressure 238/107 H Pulse Oximetry 97 96 Oxygen Delivery Method 02/26/23 09:00 02/26/23 09:01 02/26/23 09:01 Pulse Rate 93 H 87 Respiratory Rate Blood Pressure 236/143 H Pulse Oximetry 91 91 Oxygen Delivery Method 02/26/23 09:30 02/26/23 09:31 02/26/23 09:31 Pulse Rate 79 81 Respiratory Rate Blood Pressure 223/104 H Pulse Oximetry 93 Oxygen Delivery Method 02/26/23 09:45 02/26/23 10:00 02/26/23 10:00 Pulse Rate 79 86 Respiratory Rate Blood Pressure 231/172 H Pulse Oximetry 92 92 Oxygen Delivery Method 02/26/23 10:15 02/26/23 10:16 02/26/23 10:17 Pulse Rate 86 78 Respiratory Rate Blood Pressure 181/111 H Pulse Oximetry 97 95 Oxygen Delivery Method 02/26/23 10:17 02/26/23 10:22 02/26/23 10:24 Pulse Rate 79 79 Respiratory Rate Blood Pressure 181/111 H 181/111 H Pulse Oximetry 96 Oxygen Delivery Method 02/26/23 10:24 02/26/23 10:30 02/26/23 10:30 Pulse Rate 75 Respiratory Rate Blood Pressure 200/112 H 204/107 H Pulse Oximetry 94 Oxygen Delivery Method 02/26/23 10:45 02/26/23 10:45 02/26/23 11:00 Pulse Rate 68 64 Respiratory Rate Blood Pressure 226/112 H Pulse Oximetry 96 92 Oxygen Delivery Method 02/26/23 11:00 02/26/23 11:15 02/26/23 11:15 Pulse Rate 69 Respiratory Rate Blood Pressure 205/98 H 212/104 H Pulse Oximetry 97 Oxygen Delivery Method 02/26/23 11:18 02/26/23 11:19 02/26/23 11:30 Pulse Rate 75 75 76 Respiratory Rate Blood Pressure 212/104 H 212/104 H Pulse Oximetry 97 Oxygen Delivery Method 02/26/23 11:30 02/26/23 11:45 02/26/23 11:45 Pulse Rate 73 Respiratory Rate Blood Pressure 219/104 H 209/102 H Pulse Oximetry 96 Oxygen Delivery Method 02/26/23 12:00 02/26/23 12:00 02/26/23 12:15 Pulse Rate 79 Respiratory Rate Blood Pressure 207/95 H 222/101 H Pulse Oximetry 97 Oxygen Delivery Method 02/26/23 12:15 02/26/23 12:18 02/26/23 12:18 Pulse Rate 76 76 Respiratory Rate Blood Pressure 213/100 H 213/100 H Pulse Oximetry 96 97 Oxygen Delivery Method 02/26/23 12:30 02/26/23 12:31 02/26/23 12:31 Pulse Rate 81 76 Respiratory Rate Blood Pressure 233/109 H Pulse Oximetry 95 95 Oxygen Delivery Method 02/26/23 12:45 02/26/23 12:45 02/26/23 13:00 Pulse Rate 74 Respiratory Rate Blood Pressure 222/102 H 219/103 H Pulse Oximetry 94 Oxygen Delivery Method 02/26/23 13:00 02/26/23 14:35 Pulse Rate 79 76 Respiratory Rate 16 Blood Pressure 228/109 H Pulse Oximetry 96 97 Oxygen Delivery Method Room Air Medical Decision Making Lab Data 02/26/23 08:20 02/26/23 08:20 Labs: Lab Results 02/26/23 02/26/23 Range/Units 08:20 08:30 WBC 7.7 (4.5-11.0) X10^3/uL RBC 4.38 (4.0-5.2) X10^6/uL Hgb 13.7 (12.0-16.0) g/dL Hct 39.9 (36-46) % MCV 91.1 (80-100) fL MCH 31.2 (26-34) PG MCHC 34.2 (30-36) % RDW 14.1 (11.6-14.8) % Plt Count 217 (150-400) X10^3/uL Neut % (Auto) 76.4 H (50-75) % Lymph % (Auto) 15.7 L (25-40) % Nobles % (Auto) 6.1 (3-14) % Eos % (Auto) 1.2 L (2-4) % Baso % (Auto) 0.6 (0-2) % Neut # (Auto) 5900 (0854-4533) /uL Lymph # (Auto) 1200 (8913-5608) /uL Nobles # (Auto) 500 (0-900) /uL Eos # (Auto) 100 (0-450) /uL Baso # (Auto) 0 (0-100) /uL Sodium 141 (137-145) mmol/L Potassium 3.6 (3.4-5.1) mmol/L Chloride 104 (98-107) mmol/L Carbon Dioxide 27 (22-32) mmol/L BUN 11 (7-17) mg/dL Creatinine 0.71 (0.52-1.04) mg/dL Estimated GFR > 60 (>60) mL/min BUN/Creatinine Ratio 15.5 (6-22) Glucose 119 H (80-110) mg/dL Calcium 9.9 (8.4-10.2) mg/dL SARS-CoV-2 (PCR) Negative (Negative) Influenza A (RT-PCR) Flu a negative (NEGATIVE) Influenza B (RT-PCR) Flu b negative (NEGATIVE) RSV (PCR) Negative (Negative) MDM Narrative Medical decision making narrative: Patient was seen by social work. We were able to schedule a telehealth visit for the patient later this month. We also resubmitted paperwork for home health. She does have what appears to be chronic wounds to her right leg. Her blood pressure is also elevated but she is not been on any of her medications. There is no indication for admission to the hospital. Her labs are unremarkable. I did provide a 30 day prescription for her medications and refills. I would not be surprised the patient does need other living situations to include a longterm facility but this will need to be done as an outpatient. Will discharge patient home. Discharge Plan Departure Patient Disposition: Home Clinical Impression: Edema, peripheral, Hypertension Instructions: High Blood Pressure, DI for Peripheral Edema -- Bilateral Activity Restrictions/Additional Instructions: I did refill your medications. They were sent to [facility] in [place]. We were also able to get you a telehealth appointment on 03/19/2023 at 0930 in the morning with Dr. Mccoy. You can contact their office at [phone]. I highly recommend that you make this appointment. We also sent paperwork for home health. Prescriptions: New carvedilol 12.5 mg tablet 25 mg PO BID Qty: 120 2RF Rx Instructions: must administer with a meal/food clonidine HCl 0.1 mg tablet 0.1 mg PO BID Qty: 60 2RF dabigatran etexilate [Pradaxa] 150 mg capsule 150 mg PO DAILY Qty: 30 2RF furosemide [Lasix] 40 mg tablet 40 mg PO DAILY Qty: 30 2RF losartan 50 mg tablet 100 mg PO DAILY Qty: 60 2RF lorazepam [Ativan] 0.5 mg tablet 0.5 mg PO TID PRN (Reason: anxiety) Qty: 30 0RF No Action carvedilol 12.5 mg tablet 25 mg PO BID Qty: 360 3RF clonidine HCl 0.1 mg tablet 0.1 mg PO BID Qty: 180 3RF lorazepam 0.5 mg tablet 0.5 mg PO TID PRN (Reason: anxiety) Qty: 90 3RF losartan 50 mg tablet 100 mg PO DAILY furosemide 40 mg tablet 40 mg PO DAILY dabigatran etexilate [Pradaxa] 150 mg Capsule 150 mg PO DAILY Referrals: Sammy Mccoy MD [Physician] - Stand Alone Forms: Patient Portal/API
[2023-02-26 08:26] LABS: Add Manual Diff / Slide Review NO; Basophils Absolute Auto 0 /uL (0-100); Basophils Percent Auto 0.6 % (0-2); Eosinophils Absolute Auto 100 /uL (0-450); Eosinophils Percent Auto 1.2 % (2-4); Hematocrit 39.9 % (36-46); Hemoglobin 13.7 g/dL (12.0-16.0); Lymphocytes Absolute Auto 1200 /uL (1100-4500); Lymphocytes Percent Auto 15.7 % (25-40); Mean Corpuscular HGB Conc 34.2 % (30-36); Mean Corpuscular Hemoglobin 31.2 PG (26-34); Mean Corpuscular Volume 91.1 fL (80-100); Monocytes Absolute Auto 500 /uL (0-900); Monocytes Percent Auto 6.1 % (3-14); Neutrophils Absolute Auto 5900 /uL (1500-7000); Neutrophils Percent Auto 76.4 % (50-75); Platelet Count 217 X10^3/uL (150-400); Red Blood Cell Count 4.38 X10^6/uL (4.0-5.2); Red Cell Distribution Width 14.1 % (11.6-14.8); White Blood Cell Count 7.7 X10^3/uL (4.5-11.0)
--- NOTE | 2023-02-26 08:36 | PC.NURSE ---
Pt states that she was concerned for her health because she has not seen a doctor since she was in the ED approximately 1 year ago and she thinks that her wound is infected. Pt has wound on right leg that was covered with a maxipad and tape and the original surgical dressing was extremely soiled. Keloids noted when dressing was removed. No redness and/or purulent drainage. Pt reports that she has not been taking any of her home medications for a year and has hx of afib. Pt currently not taking blood thinners. Denies cp and SOB. Pt states that her pain level is all over and 10/10. 3+ pitting edema noted on lower extremities. Pt's overall appearance unkept and pt states that she is unable to care for herself due to pain from a leg fx that occurred [address] Hernandez at bedside at the time of triage.
[2023-02-26 08:38] LABS: BUN Creatinine Ratio 15.5 (6-22); Blood Urea Nitrogen 11 mg/dL (7-17); Calcium 9.9 mg/dL (8.4-10.2); Carbon Dioxide 27 mmol/L (22-32); Chloride 104 mmol/L (98-107); Estimated Glomerular Filt Rate > 60 mL/min (>60); Glucose 119 mg/dL (80-110); HEMOLYSIS < 15 (0-50); Potassium 3.6 mmol/L (3.4-5.1); Sodium 141 mmol/L (137-145)
[2023-02-26] MEDS: FUROSEMIDE 60 MG in SODIUM CHLORIDE 0.9% 50 ML 112 MG IV (09:09)
--- NOTE | 2023-02-26 09:21 | PC.NURSE ---
0900 pt's dirty sheets from home were removed and pt was cleaned. barrier cream applied to sacrum and coccyx. brief changed and pure wic properly in place. blanchable stage 1 pressure wound and positioned pt on left side. Pt stated that she only changes her soiled linens once a week with home health. Pt lives with daughter at home. Spoke with daughter who stated that pt has not gotten out of bed since she fx her leg 2 years ago and has a wheelchair but pt refuses to use it. Daughter stated that she cannot take care of her mother at home and it is becoming increasingly difficult.
[2023-02-26 09:30] LABS: Influenza A - CEPHEID Flu A NEGATIVE (NEGATIVE); Influenza B - CEPHEID Flu B NEGATIVE (NEGATIVE); Respiratory Syncytial Virus Negative (Negative)
[2023-02-26 09:42] LABS: COVID-19 CEPHEID 4-PLEX PCR Negative (Negative)
[2023-02-26] MEDS: ONDANSETRON 4 MG/2 ML INJ IV (10:15)
[2023-02-26] MEDS: cloNIDine 0.1 MG TABLET PO (10:22)
[2023-02-26] MEDS: LOSARTAN 50 MG TABLET 100 MG PO (11:18)
[2023-02-26] MEDS: carvediloL 12.5 MG TABLET 25 MG PO (11:19)
[2023-02-26] MEDS: ACETAMINOPHEN 325 MG TABLET 650 MG PO (13:49)
--- NOTE | 2023-02-26 14:09 | PC.NURSE ---
Full linen change and brief change. Pt's skin fully cleansed with mikie wipes and dried with towels. Barrier cream applied.
--- NOTE | 2023-02-26 14:09 | CM.SWNOTE ---
Addendum entered by Kelly Vargas 03/02/23 12:20: [employer] follow up Note [employer]DEL [employer]ER receives VMs from patient's daughter and reports that Dr. Mccoy' office called her stated that patient cannot be seen by Dr. Mccoy because she fired him daughter states that patient denies this. Daughter also reports concern that she has not been able to retrieve patient's rx. [employer] receives VM from Taina at [facility] stating that patient is accepted and will start HH services soon. [employer]DEL [employer]KER calls PCP office and explains the situation, RN reviews patient's chart. Patient is able to be scheduled with Dr. Alexi Damian via Telehealth for Sunday 03/04 at 8:30 AM. [employer] calls daughter and updates her in regards to patient's new PCP and appt. She indicates agreement and understanding. Daughter endorses that she was able to retrieve patient's rx. Daughter states she received a VM from [facility] and will call them back. [employer]ER calls Taina at [facility] regarding patient's new PCP and upcoming appt on 03/04, she states she will inform her team and services should start soon. SRINIVAS Roman Addendum entered by Kelly Vargas 02/26/23 14:33: [employer] Note Patient endorsed concern for rx refills, ED provider to provide a month refill for patient's rx and PCP to f/u with ongoing refills. [employer] receives VM from patient's daughter stating that she received a call from Dr. Mccoy's office saying that patient cannot be seen via telehealth. [employer]ER calls PCP office and discusses patient's need for telehealth appt as patient is bedbound and patient's need for a PCP due to patient's need for HH and recent HH referral with [facility]. RN at PCP office states they will keep PCP appt as telehealth for patient and figure it out when Dr. Mccoy returns to the office on 03/09/23. [employer] endorses that patient is in need of PCP telehealth f/u with any provider that is available. SRINIVAS Roman Original Note: [employer]ER/DCP Note Patient is 77y/o female who presents to ED via EMS from [facility] due to concern for bilateral lower extremity swelling and failure to thrive. Patient has hx of femur fracture in 2020, hx of AFib, CHF, and Hypertension. Patient has new dx at today's ED visit or peripheral edema. Patient had similar presentation to the ED in January 2022 and that was the last time patient has been seen by a medical provider. Patient's PCP is Dr. Mccoy, [employer] calls Dr. Mccoy's office to confirm patient is still current with provider. Patient's last appt was July 2020. Historically last year patient was seeing CAMPOS Canales through [facility] who is a cad specialist at [facility]. Patient has [facility]. Patient presents as A/Ox4 and states that she presents to ED due to concern for edema on her legs, that she is full of fluid and presents with high blood pressure. Patient endorses that she resides with her daughter Jennifer in [place] and daughter has not been able to transfer patient to wheelchair and patient has not been able to leave home. It is reported that patient has a caregiver that tends to patient's bathing and hygiene needs 1-2 times a week. Patient endorses hx of SNF rehab stay in March 2020 after femur fracture and hx of [facility]. Patient endorses she has been bedridden since then. Patient endorses that she has not been able to manage ADLs and relies on her daughter for ADL needs. Daughter endorses concern for meeting her needs. [employer]DEL [employer]KER discusses HH services and provides senior resource guide with options of in home caregivers and senior care care facilities via private pay. DI[employer]DEL MAKER calls PCP office and discusses issues with patient's ability to get to in person appt, patient was last seen by Dr. Mccoy in 2020. It is reported that patient can be seen by Dr. Mccoy via telehealth since patient is bedridden. PCP ED f/u is scheduled with Dr. Mccoy for 03/19/23 at 9:30 AM. [employer]DEL MAKER calls [facility] and leaves regarding HH referral. ED provider Dr. Hernandez signs F2F. DI[employer] MODEL MAKER faxes F2F, orders and clinicals to [facility]. [employer]DEL [employer]KER submits HH referral for OT, PT, RN, HH aide and [employer]. DIOR[employer] MODEL MAKER also calls [facility] directly and discusses patient, it is reported they take patient's insurance and have openings early next week. [employer]DEL [employer]KER requests [facility] referral since patient has not been seen by PCP yet. [employer]OR[employer] MODEL MAKER provides [facility] brochure to patient. Patient indicates agreement and understanding. Plan: Patient to transfer home via BLS with [facility] referral in place. Family to look into senior care care options. Patient to f/u with PCP Dr. Mccoy via telehealth appt on 03/19/23. SRINIVAS Roman
== END 2023-02-26 14:37 | disposition home or self-care (01) ==
PROVIDERS: Emergency Provider Emergency Medicine; Family Provider Family Medicine
DX: R60.9 Edema, unspecified (principal); I10 Essential (primary) hypertension; Z20.822 Contact with and (suspected) exposure to COVID-19; Z79.01 Long term (current) use of anticoagulants; Z79.899 Other long term (current) drug therapy
CPT/HCPCS: 0241U; 36415; 80048; 85025; 96365; 96375; 99284; J1940; J2405